=== PATIENT | male | born 1990 | race African-American/Black ===

== ENCOUNTER 2018-06-17 07:10 | Day surgery (SDC) | payer OTHER ==
[2018-06-17] MEDS ORDERED: ENOXAPARIN SODIUM 40 MG/0.4 ML DISP.SYRIN SQ ONE ×2 (07:29→08:48)
[2018-06-17] MEDS ORDERED: LACTATED RINGERS 1,000 ML IV ONE ×2 (07:30→11:48)
[2018-06-17] MEDS ORDERED: FAMOTIDINE 20 MG/2 ML VIAL ONE (07:30)
[2018-06-17] MEDS ORDERED: SCOPOLAMINE HYDROBROMIDE 1.5MG/72HR PATCH TD ONE (07:30)
[2018-06-17] MEDS ORDERED: LEVALBUTEROL NEB 1.25 MG/3 ML VIAL.NEB IH ONE (07:52)
[2018-06-17] MEDS ORDERED: BUPIV. HCL 0.25% (2.5MG/ML)/EPI. (1:200,000) PF 30 ML VIAL IJ ONE (08:48)
[2018-06-17] MEDS ORDERED: fentaNYL CITRATE/PF 100 MCG/2 ML INJ. ONE ×3 (08:48→12:06)
[2018-06-17] MEDS ORDERED: ONDANSETRON HCL/PF 4 MG/ 2ML VIAL ONE ×3 (08:48→11:48)
[2018-06-17] MEDS ORDERED: PROPOFOL 200 MG/20 ML VIAL IV ONE (08:48)
[2018-06-17] MEDS ORDERED: LIDOCAINE HCL 2% PF 100MG/5ML VIAL IJ ONE (08:48)
[2018-06-17] MEDS ORDERED: ROCURONIUM BROMIDE 10 MG/ML 5ML VIAL ONE (08:48)
[2018-06-17] MEDS ORDERED: MIDAZOLAM HCL 2 MG/2 ML VIAL ONE (08:48)
[2018-06-17] MEDS ORDERED: ceFAZolin SODIUM 1 GM VIAL ONE (08:48)
[2018-06-17] MEDS ORDERED: PHENYLEPHRINE HCL 10 MG/1 ML ONE (08:48)
[2018-06-17] MEDS ORDERED: SODIUM CHLORIDE IRRIG SOLUTION 3,000 ML IRRIG.SOLN IR ONE (08:48)
[2018-06-17] MEDS ORDERED: SEVOFLURANE 250 ML LIQUID IH ONE (08:48)
[2018-06-17] MEDS ORDERED: LACTATED RINGERS 1,000 ML IV.SOLN IV ONE (08:48)
[2018-06-17] MEDS ORDERED: DEXAMETHASONE SODIUM PHOSPHATE 10 MG/ML VIAL ONE (08:48)
[2018-06-17] MEDS ORDERED: LIDOCAINE HCL 1% PF 300MG/30ML VIAL ONE (08:48)
--- NOTE | 2018-06-22 14:06 | Operative Note ---
OPERATIVE REPORT PATIENT NAME: GILBERTO SEGURA DATE OF : 1990 MR#: PROCEDURE DATE: 06/17/2018 PREOPERATIVE DIAGNOSIS: 1. Morbid obesity. 2. Sleep apnea. 3. Type 2 diabetes. 4. Hypertension. 5. Gastroesophageal reflux disease. POSTOPERATIVE DIAGNOSIS: 1. Morbid obesity. 2. Sleep apnea. 3. Type 2 diabetes. 4. Hypertension. 5. Gastroesophageal reflux disease. PROCEDURES PERFORMED: 1. Laparoscopic vertical sleeve gastrectomy. 2. Upper gastrointestinal endoscopy. SURGEON: Devang Mathews M.D. INDICATIONS FOR PROCEDURE: Mr. Gilberto Segura is a 27-year-old male who presented with features of morbid obesity. He was noted to have a weight of 378 pounds with a BMI of 58.4. The patient was advised laparoscopic vertical sleeve gastrectomy and possible hiatal hernia repair. The patient showed understanding and agreed to proceed. DESCRIPTION OF PROCEDURE: After explaining to the patient in detail and informed consent was obtained, the patient was identified in the preoperative holding area. The patient was transferred to the operating room and was placed in supine position. Sequential compressive devices were placed for DVT prophylaxis. Preoperative antibiotics were given. After induction of anesthesia, the abdomen was prepped and draped in a sterile fashion. Through a left upper quadrant 1-cm incision, and using Optiview technique, the peritoneal cavity was entered and pneumoperitoneum was created. Thereafter, under direct vision, another 5-mm trocar was placed in the left midabdomen and another 15-mm trocar was placed in the right midabdomen. Through a 1-cm incision in the right subcostal region, another 5-mm trocar was placed. Through a 1-cm incision in the epigastrium, a Casey retractor was introduced and the left lobe of the liver was retracted. On initial inspection, the patient was noted to have no evidence of hiatal hernia. I took down the gastroepiploic vessels using a LigaSure. This was continued superiorly. The short gastric vessels were taken down. The gastrophrenic ligament was divided and the Angle of His was mobilized. The posterior attachments of the stomach on the pancreas were released. Distally, the gastroepiploic vessels were taken down up to about 4 cm proximal to the pylorus. At this point, a #38 Japanese Hurst Bougie was introduced into the stomach and was placed along the lesser curve. The stomach was then divided in a vertical fashion with multiple Endo SAIDA Covidien Black Load Staplers. The first firing was directed outwards towards the greater curvature. Subsequent firings were directed towards the Angle of His to create a loose sleeve around the #38 Japanese bougie. The bougie was then removed and an upper GI endoscopy was performed at this point. The scope was introduced into the esophagus and was gradually advanced into the stomach. The GE junction appeared normal. The sleeve size appeared normal. No evidence of any active bleeding was noted. The stomach was insufflated with air and irrigation of fluid along the staple line revealed no evidence of air leak. The stomach was then suctioned out and the scope was removed. Absolute hemostasis was ensured. Thorough saline irrigation was given. The Casey retractor was removed. Approximately 10 mL of a lidocaine- Marcaine mix was instilled under the left hemidiaphragm. The sleeve gastrectomy specimen was removed. The abdomen was then deflated. The incisions were closed with 4-0 Monocryl. Dermabond was applied. Approximately 10 mL of a lidocaine- Marcaine mix was injected into all the incisions. The patient was awakened from anesthesia and was transferred to the recovery room in stable condition. ESTIMATED BLOOD LOSS: Approximately 10 mL. CONDITION OF THE PATIENT: Stable. FLUIDS GIVEN: Per Anesthesia note. SPECIMEN(S) SENT: Sleeve gastrectomy specimen. COMPLICATIONS: None. ANESTHESIA: General. Devang Mathews M.D. ARTI/jeanie FOSTER
== END 2018-06-17 12:28 | disposition other institution (70) ==
LOC: OPSURG 07:10
PROVIDERS: ATTEND Surgery
DX: E66.01 Morbid (severe) obesity due to excess calories (principal); Z68.43 Body mass index [BMI] 50.0-59.9, adult; E11.9 Type 2 diabetes mellitus without complications; I10 Essential (primary) hypertension; G47.30 Sleep apnea, unspecified; K21.9 Gastro-esophageal reflux disease without esophagitis
CPT/HCPCS: 43235; 43775; A9270; J0690; J1650; J2001; J2250; J2370; J2405; J2704; J3010; J7120; J7614

== ENCOUNTER 2018-06-17 12:29 | Inpatient (IN) | payer OTHER ==
[2018-06-17] MEDS ORDERED: PROMETHAZINE HCL 25 MG in 0.9 % SODIUM CHLORIDE 50 ML IV PRN (12:44)
[2018-06-17] MEDS ORDERED: traZODone HCL 50 MG TABLET PO PRN (13:03)
[2018-06-17] MEDS: KETOROLAC TROMETHAMINE 30 MG/1ML VIAL IVP PRN ×2 (13:08→20:01)
[2018-06-17] MEDS: ONDANSETRON HCL/PF 4 MG/ 2ML VIAL IVP PRN ×2 (13:09→20:01)
--- NOTE | 2018-06-17 13:14 | History and Physical Report ---
History of Present Illnes - History of Present Illness Reason for Visit: S/P Gastric Sleeve History of Present Illness: Patient is a 27-year-old male who has tried multiple diets and exercise programs with no success. He has always struggled with his weight since he was a young child. Parents are overweight. Patient and surgeon decided to proceed with gastric sleeve procedure. Procedure went well without complications- patient will be admitted and monitored s/p surgical intervention. He will be admitted for IV hydration, IV pain control, and IV antiemetics. - Past Medical History Cardiac: HTN Pulmonary: Sleep Apnea Gastrointestinal: GERD Psych: Depression, Other (PTSD) Endocrine: Diabetes, obesity - Past Surgical History Past Surgical History: Other (ankle surgery-RT) - Past Family History Mother Family History: Hypertension Father Family History: Hypertension - Past Social History Smoke: Quit (1 week ago- uses vapor) Alcohol: Occassional (2-3 beers daily) Drugs: None Lives: With Family Domestic Violence: Negative - Health Maintenance Health Maintenance: Cholesterol, Tetanus. denies: Influenza Vaccine Influenza Vaccine: Patient Refused Pneumonia Vaccine: No Resuscitation Status: Resusciation Status Resuscitation Status Full Code - Unable to Obtain History Unable to Obtain: No Review of Systems - Review of Systems Constitutional: negative: Fever, Chills Eyes: negative: pain, vision change ENT: Throat Pain (sore throat s/p surgery). negative: Ear Pain, Ear Discharge Respiratory: negative: Cough, Shortness of Breath Cardiovascular: Chest Pain (feels better when he belches and walks). negative: Palpitations, Light Headedness Gastrointestinal: Nausea, Abdominal Pain (s/p gastric sleeve). negative: Vomiting Genitourinary: negative: Dysuria Musculoskeletal: negative: Neck Pain, Shoulder Pain, Back Pain Skin: negative: Rash Neurological: negative: Weakness, Confusion - Medications/Allergies Allergies/Adverse Reactions: Allergies Allergy/AdvReac Type Severity Reaction Status Date / Time Penicillins Allergy Unknown Verified 06/17/18 12:49 Home Medications: Home Medications Acetaminophen [Pain Relief] 500 mg PO D PRN 06/17/18 Brexpiprazole [Rexulti] 4 mg PO D 06/17/18 Lamotrigine [Lamictal] 100 mg PO D 06/17/18 Losartan Potassium [Cozaar] 50 mg PO DAILY 06/17/18 Metformin HCl 500 mg PO D 06/17/18 Omeprazole 20 mg PO D 06/17/18 Terbinafine HCl [Lamisil] 250 mg PO D 06/17/18 Trazodone HCl 50 mg PO HS PRN 06/17/18 Varenicline Tartrate [Chantix] 1 mg PO D 06/17/18 Vilazodone HCl [Viibryd] 40 mg PO D 06/17/18 Current Inpatient Medications: Current Inpatient Medications Enoxaparin Sodium (Lovenox) 40 mg SQ DAILY [facility] Stop: 07/02/18 08:59 Famotidine (Pepcid) 20 mg IVP BID [facility] Stop: 06/21/18 20:59 Promethazine HCl 25 mg/ Sodium (Chloride) 51 mls @ 200 mls/hr IV Q6 PRN PRN Reason: Nausea / Vomiting Stop: 06/21/18 12:43 Sodium Chloride (Normal Saline) 1,000 mls @ 150 mls/hr IV Q8H [facility] Clindamycin Phosphate 600 mg/ (PREMIX BAG) 50 mls @ 50 mls/hr IV Q8H [facility] Stop: 06/18/18 03:29 Ketorolac Tromethamine (Toradol) 30 mg IVP Q6 PRN PRN Reason: For Mild Pain Stop: 06/21/18 12:43 Miscellaneous (Chem Sticks) 1 each MC Q6H [facility] Miscellaneous (Brexpiprazole [Rexulti]) 4 mg PO D [facility] Miscellaneous (Vilazodone Hcl [Viibryd]) 40 mg PO D [facility] Morphine Sulfate (Morphine Sulfate) 2 mg IVP Q2 PRN PRN Reason: Pain 5-7 Stop: 06/18/18 12:43 Ondansetron HCl (Zofran) 4 mg IVP Q6H PRN PRN Reason: Nausea / Vomiting Stop: 06/21/18 12:43 Oxycodone HCl (Roxicodone) 5 mg PO Q6H PRN PRN Reason: Pain 5-7 Trazodone HCl (Desyrel) 50 mg PO HS PRN PRN Reason: Insomnia Exam - Exam General: Alert, Oriented to Person, Oriented to Place, Oriented to Time, Cooperative, Mild distress, Morbidly Obese HEENT: Atraumatic, PERRLA, Mouth Mucous membr. moist/[place], Nose Mucous membr. moist/[place] Neck: Normal Range of Motion Lungs: Clear to auscultation, Normal air movement, Speaks full Sentences Cardiovascular: Regular rate, Normal S1, Normal S2 Abdomen: Soft, Decreased Bowel Sounds, Umbilical Hernia Integumentary: Normal, [place], Warm, Dry, Other (incisions x 5 (one with drainage will monitor)- nurse marking area) Extremities: No edema, Normal pulses, No tenderness/swelling Neurological: Normal gait, Normal speech, Strength Equal Bilat, Sensation intact Psych/Mental Status: Mental status NL, Mood NL, Appropriate Affect Assessment/Plan - Assessment/Plan (1) S/P gastric surgery Status: Acute Current Visit: Yes Plan: Plan to admit for IV hydration, IV pain meds, and IV antiemetics. Lovenox, SCD's, IS and frequent ambulation will be used. Start ice chips and advance diet as tolerated. (2) Morbid obesity due to excess calories Status: Acute Current Visit: Yes Assessment: Patient is status post Gastric Sleeve Surgery- Doing very well Plan: Plan to admit for IV hydration, IV pain meds, and IV antiemetics. Lovenox, SCD's, IS and frequent ambulation will be used. STart ice chips and advance diet as tolerated. (3) Hypertension Status: Acute Current Visit: Yes Qualifiers: Hypertension type: essential hypertension Qualified Code(s): I10 - Essential (primary) hypertension Plan: Will hold Losartan and monitor blood pressures closely. May have to restart medication (4) PTSD (post-traumatic stress disorder) Status: Acute Current Visit: Yes Plan: Will continue to give Rexulti and Vilazodone (will use home medication and have nurse crush) (5) Depression Status: Acute Current Visit: Yes Qualifiers: Depression Type: major depressive disorder Major depression recurrence: recurrent Active/Remission status: remission status unspecified Qualified Code(s): F33.9 - Major depressive disorder, recurrent, unspecified Plan: Will continue to give Rexulti and Vilazodone (will use home medication and have nurse crush) We will hold Lamictal today- his provider stated he could miss a couple of days to let gut rest- pt will restart on discharge per PCP (6) Type 2 diabetes mellitus Status: Acute Current Visit: Yes Qualifiers: Diabetes mellitus fpc insulin use: without ferry terminal supervisor use Diabetes mellitus complication status: with hyperglycemia Qualified Code(s): E11.65 - Type 2 diabetes mellitus with hyperglycemia Plan: Will hold metformin and monitor blood sugars. Will consider SSI if needed VTE Assessment - RISK FACTOR SCORE VTE RISK FACTOR SCORES: OBESITY, SMOKER, MAJOR SURGERY/ANESTHESIA TIME > 1 HOUR - RISK VTE HIGH RISK: SCORE OF 3-4 (RISK PROXIMAL DVT 4-8%) PROPHYLAXIS NEEDED (Will give lovenox daily, frequent ambulation, SCDs while in bed)
[2018-06-17] MEDS: 0.9 % SODIUM CHLORIDE 1,000 ML IV SCH ×2 (13:49→21:05)
[2018-06-17] MEDS: MORPHINE SULFATE 4 MG/ML VIAL IVP PRN ×3 (13:58→18:05)
[2018-06-17 15:56] VITALS: BMI 56.9
[2018-06-17] MEDS ORDERED: CLINDAMYCIN PHOSPHATE/D5W 50 ML IV ONE ×2 (17:55→19:48)
[2018-06-17] MEDS: CLINDAMYCIN PHOSPHATE/D5W 600 MG in PREMIX BAG 1 BAG IV SCH (18:22)
[2018-06-17] MEDS: FAMOTIDINE 20 MG/2 ML VIAL IVP SCH (21:05)
[2018-06-18] MEDS: MORPHINE SULFATE 4 MG/ML VIAL IVP PRN ×2 (00:04→06:34)
[2018-06-18] MEDS: KETOROLAC TROMETHAMINE 30 MG/1ML VIAL IVP PRN ×4 (01:34→22:37)
[2018-06-18] MEDS: CLINDAMYCIN PHOSPHATE/D5W 600 MG in PREMIX BAG 1 BAG IV SCH (02:45)
[2018-06-18] MEDS: 0.9 % SODIUM CHLORIDE 1,000 ML IV SCH ×3 (04:11→18:37)
--- NOTE | 2018-06-18 07:33 | Inpatient Progress Note ---
Subjective - Required Recertification Statement I anticipate X number of days because-include discharge plan: 1 - Review of Systems Events since last encounter: Patient has been doing very well- he is ambulating frequently, using incentive spirometer- pain and nausea are controlled. Will try to transition to oral medications today. Incision sites are unchanged. Patient states that belching has helped his chest discomfort- he states he has not had much flatus but is belching. He was not wearing his CPAP this morning- he said he woke a few times last night- discussed importance of CPAP General: Denies: Chills, Fatigue HEENT: Denies: Head Aches, Visual Changes Pulmonary: Denies: Dyspnea, Pleuritic Chest Pain Cardiovascular: Denies: Chest Pain, Light Headedness Gastrointestinal: Nausea, Abdominal Pain (S/p gastric sleeve). Denies: Vomiting Genitourinary: Denies: Dysuria Musculoskeletal: Denies: Shoulder Pain, Back Pain Neurological: Denies: Incoordination, Confusion Objective - Exam Vitals and I&O: Vital Signs Temp 97.4 F L 06/18/18 05:33 Pulse 64 06/18/18 05:33 Resp 18 06/18/18 05:33 BP 147/78 06/18/18 05:33 Pulse Ox 97 06/18/18 05:33 Intake & Output 06/17/18 06/17/18 06/18/18 11:59 23:59 11:59 Intake Total 1859 Output Total 1974 2749 Balance -115 -2750 Weight 170 kg Intake: IV 1350 Left Medial Port 1350 Antecubital Oral 510 Output: Urine 1974 2749 Other: Voiding Method Toilet Toilet # Voids 3 General: Alert, Oriented to Person, Oriented to Place, Oriented to Time, Cooperative, No acute distress, Morbidly Obese HEENT: Atraumatic, PERRLA, Mouth Mucous membr. moist/[place], Nose Mucous membr. moist/[place] Neck: +2 carotid pulse wo bruit Lungs: Clear to auscultation, Normal air movement, Speaks full Sentences Cardiovascular: Regular rate, Normal S1, Normal S2 Abdomen: Soft, Decreased Bowel Sounds Extremities: No edema, Normal pulses, No tenderness/swelling Skin: Normal, [place], Warm, Dry, Other (incision sites unchanged) Neurological: Normal gait, Normal speech, Strength Equal Bilat, Sensation intact, Cranial nerves 3-12 NL Psych/Mental Status: Mental status NL, Mood NL, Appropriate Affect Assessment/Plan - Assessment/Plan (1) S/P gastric surgery Status: Acute Current Visit: Yes Plan: Will try to transition patient to PO meds (nausea & pain), continue with ambulation, continue use of incentive spirometer (2) Morbid obesity due to excess calories Status: Acute Current Visit: Yes Plan: Advance diet to Gastric Diet post op day 1 (3) Hypertension Status: Acute Current Visit: Yes Qualifiers: Hypertension type: essential hypertension Qualified Code(s): I10 - Essential (primary) hypertension Assessment: Blood pressure this morning is 147/78. Plan: Continue to monitor blood pressure... will hold meds at this time (4) PTSD (post-traumatic stress disorder) Status: Acute Current Visit: Yes Plan: Continue to give medication during stay (5) Depression Status: Acute Current Visit: Yes Qualifiers: Depression Type: major depressive disorder Major depression recurrence: recurrent Active/Remission status: remission status unspecified Qualified Code(s): F33.9 - Major depressive disorder, recurrent, unspecified Plan: Continue to give medication during hospitalization (6) Type 2 diabetes mellitus Status: Acute Current Visit: Yes Qualifiers: Diabetes mellitus alf insulin use: without rat exterminator use Diabetes mellitus complication status: with hyperglycemia Qualified Code(s): E11.65 - Type 2 diabetes mellitus with hyperglycemia Assessment: Blood sugar 105 this morning Plan: Will continue to monitor blood sugars today and hold metformin
[2018-06-18] MEDS ORDERED: FAMOTIDINE 20 MG/2 ML VIAL ONE (07:41)
[2018-06-18] MEDS: ONDANSETRON HCL/PF 4 MG/ 2ML VIAL IVP PRN (08:06)
[2018-06-18] MEDS: ENOXAPARIN SODIUM 40 MG/0.4 ML DISP.SYRIN SQ SCH (08:08)
[2018-06-18] MEDS: FAMOTIDINE 20 MG/2 ML VIAL IVP SCH ×2 (08:08→20:34)
[2018-06-18] MEDS: VILAZODONE HCL 40 MG PO SCH (08:10)
[2018-06-18] MEDS: BREXPIPRAZOLE 4 MG PO SCH (08:10)
[2018-06-19] MEDS: 0.9 % SODIUM CHLORIDE 1,000 ML IV SCH (01:04)
[2018-06-19] MEDS ORDERED: FAMOTIDINE 20 MG/2 ML VIAL ONE (08:07)
--- NOTE | 2018-06-19 08:07 | Discharge Summary ---
Discharge Summary - Discharge Sumary History of Present Illness: Patient is a 27-year-old male who has tried multiple diets and exercise programs with no success. He has always struggled with his weight since he was a young child. Parents are overweight. Patient and surgeon decided to proceed with gastric sleeve procedure. Procedure went well without complications- patient will be admitted and monitored s/p surgical intervention. He will be admitted for IV hydration, IV pain control, and IV antiemetics. Condition at Discharge: Stable Home Medications: Ambulatory Orders Medication Instructions Recorded Acetaminophen [Pain Relief] 500 mg PO D PRN 06/17/18 Brexpiprazole [Rexulti] 4 mg PO D 06/17/18 Lamotrigine [Lamictal] 100 mg PO D 06/17/18 Losartan Potassium [Cozaar] 50 mg PO DAILY 06/17/18 Metformin HCl 500 mg PO D 06/17/18 Omeprazole 20 mg PO D 06/17/18 Terbinafine HCl [Lamisil] 250 mg PO D 06/17/18 Trazodone HCl 50 mg PO HS PRN 06/17/18 Varenicline Tartrate [Chantix] 1 mg PO D 06/17/18 Vilazodone HCl [Viibryd] 40 mg PO D 06/17/18 Consultations this Visit: None Procedures this Visit: Other (S/P Gastric Sleeve) Allergies/Adverse Reactions: Allergies Allergy/AdvReac Type Severity Reaction Status Date / Time Penicillins Allergy Unknown Verified 06/17/18 12:49 Discharge Summary: Patient is a 27-year-old male that underwent the gastric sleeve procedure and has done very well. He has been very cooperative with his care by ambulating frequently, using his incentive spirometer, and wearing her SCDs while in bed. He has been compliant with his diet during hospitalization. He is having minimal discomfort at this time and no nausea- he started passing gas last night and belching after surgery. He is aware of discharge instructions and what he can and cannot do post surgical- he is aware of the strict diet he must follow to decrease discomfort and have success after procedure. He has family support and significant other will be taking him home- medications written by surgeon given to patient. He feels ready to go home. Hospital Course: Patient received pain medications, antiemetics, and IVF and was transitioned to oral. He has been up ambulating and using incentive spirometer. - Final Diagnosis (1) S/P gastric surgery Problems: Incision without redness or drainage, positive bowel sounds, minimal discomfort, belching and flatus, no extremity pain or edema Right or Left: Right (2) Morbid obesity due to excess calories Problems: S/P Gastric Sleeve Right or Left: Right (3) Hypertension Problems: Continue with blood pressure medications due to some elevated BPs during admission Right or Left: Right (4) PTSD (post-traumatic stress disorder) Problems: Stable on home medications- continue to take medications Right or Left: Right (5) Depression Problems: Stable on home medications- continue to take medications Right or Left: Right (6) Type 2 diabetes mellitus Problems: Continue to hold medications- blood sugar stable during admission- keep log of blood sugars and take to follow up appointment Right or Left: Right
[2018-06-19] MEDS: FAMOTIDINE 20 MG/2 ML VIAL IVP SCH (08:22)
[2018-06-19] MEDS: VILAZODONE HCL 40 MG PO SCH (08:22)
[2018-06-19] MEDS: BREXPIPRAZOLE 4 MG PO SCH (08:22)
[2018-06-19] MEDS: ENOXAPARIN SODIUM 40 MG/0.4 ML DISP.SYRIN SQ SCH (08:23)
[2018-06-19 09:39] VITALS: BP 168/120
== END 2018-06-19 09:00 | disposition home or self-care (01) | DRG 948 ==
LOC: SOUTH 12:29
PROVIDERS: ADMIT Nurse Practitioner Family; ATTEND Nurse Practitioner Family
DX: G89.18 Other acute postprocedural pain (principal); R11.2 Nausea with vomiting, unspecified; E11.9 Type 2 diabetes mellitus without complications; I10 Essential (primary) hypertension; G47.30 Sleep apnea, unspecified; F43.12 Post-traumatic stress disorder, chronic
CPT/HCPCS: 88305; 97161; 97165; 97535; J1650; J1885; J2270; J2405; J7030; S0028; 99222; 99231; 99238